=== PATIENT | male | born 1940 | race Caucasian/White ===

== ENCOUNTER 2017-04-29 14:51 | Inpatient (IN) | payer OTHER, MEDICARE ==
[2017-04-29] MEDS ORDERED: ACETAMINOPHEN 325 MG TAB PO PRN (15:54)
--- NOTE | 2017-04-29 17:02 | ECHO ---
[email or web address] [address] [address] Main: [phone] Fax: Transthoracic Echocardiogram Name: FELICE SCHULTZ MR#: [id number] Study Date: 04/29/2017 Study Time: 04:11 PM Date of : 1940 Age: 76 year(s) Height: 185.4 cm (73 in.) Weight: 131 kg (288.8 lb.) BSA: 2.52 m2 Gender: Male Examination: Echo Indication: SOB/question CHF Image Quality: Contrast: Requested by: Sonido Beltre BP: 144 mmHg/77 mmHg Heart Rate: Rhythm: Indication: SOB/question CHF Procedure Staff Laborer Yard: Desire Pelayo Physician: Ayden Harper Requesting Provider: Conclusions: Normal global systolic LV function. The ejection fraction is estimated to be 60-65 %. There is a pacemaker lead noted in the right ventricle. Mild mitral valve regurgitation is present. There is mild thickening of the aortic cusps. Mildly dilated ascending aorta measuring 4.2 cm. Measurements: Chambers Valvular Assessment AV/MV Valvular Assessment TV/PV Normal Normal Normal Name Value Range Name Value Range Name Value Range Ao April (MM): 2.5 cm (2.2 cm-3.7 AV meanP mmHg ( - ) TR Vmax: 2.90 mm/s ( - ) cm) MV E Vmax: 0.80 m/s ( - ) TR PGmax: 34 mmHg ( - ) LVDd (2D): 5.4 cm (4.2 cm-5.9 MV A Vmax: 0.25 m/s ( - ) syst. PAP: 39 mmHg ( - ) cm) MV E/A: 3.20 ( - ) EF Range: 60-65 % Continued Measurements: Chambers Valvular Assessment AV/MV Valvular Assessment TV/PV Name Value Name Value Name Value LADs: 5.8 cm MV E/E' Septal: 7.70 CVP (est.): 5 mmHg LADs Lon.1 cm MV E/E' Lateral: 7.90 LA Area: 31.1 cm2 Additional Vessels Name Value Ao Ascendin.2 cm Patient: FELICE SCHULTZ Study Date: 04/29/2017 Page 1 of 2 04:11 PM Findings: Left Ventricle: Normal size left ventricle. No LV hypertrophy. Normal global systolic LV function. The ejection fraction is estimated to be 60-65 %. No regional wall motion abnormality. Right Ventricle: Moderately dilated right ventricle. There is a pacemaker lead noted in the right ventricle. Left Atrium: The left atrium is mildly to moderately dilated. Right Atrium: The right atrium is moderately to severely dilated. Mitral Valve: The mitral valve is normal in appearance and function. Mild mitral valve regurgitation is present. Aortic Valve: The aortic valve is normal in appearance and function. There is mild thickening of the aortic cusps. Tricuspid Valve: The tricuspid valve is normal in appearance and function. Mild to moderate tricuspid valve regurgitation. RVSP is 39-44mmHG.. Pulmonic Valve: Pulmonary valve not well visualized. Aorta: The aorta is normal. Mild aortic root dilatation. Mildly dilated ascending aorta measuring 4.2 cm. Pericardium: No pericardial effusion. (No Signature Object) Patient: FELICE SCHULTZ Study Date: 04/29/2017 Page 2 of 2 04:11 PM [id number]
[2017-04-29 17:11] LABS: PLATELET COUNT 96 10^3/uL (150-400)
[2017-04-29 17:18] LABS: INR 2.46 (0.83-1.16); PROTIME(PATIENT) 26.6 SEC (12.0-15.0)
[2017-04-29] MEDS ORDERED: FUROSEMIDE 40 MG/4 ML VIAL IVP ONE (17:31)
--- NOTE | 2017-04-29 17:54 | CPEKG ---
Heart Rate: 80 RR Interval: 750 P-R Interval: 198 QRSD Interval: 148 QT Interval: 348 QTC Interval: 402 P Oak[place]: 0 QRS [place]: -42 T Wave [place]: 81 EKG Severity - ABNORMAL ECG - EKG Impression: VENTRICULAR-PACED RHYTHM Electronically Signed By: Giovanni Dc 30-Apr-2017 09:56:54
--- NOTE | 2017-04-29 18:09 | PDCARPN ---
Cardiology Progress Note Chief Complaint: Patient reports feeling abdomen is firm and dyspnea any exertion. Assessment/Plan: Assessment: Please see Dr Dc office note as 76 yo male who primary cardiology is [facility]. Patient with significant past history that includes CAD with previous CABG and multivessel stenting (no evidence of ischemia on MPI study 01/2015) , permanent atrial fibrillation/flutter, ischemic cardiomyopathy with most recent echocardiogram in August of 2016 EF of 50%, hyperlipidemia, remote history of ventricular tachycardia, Bi V AICD implantation, spinal stenosis, EtOH abuse ( reports 3-4 scotches night). [address] Dc on 04/29/2017, for generator change. Reporting increased weight gain (25 lb since January of 2017) , edema, orthopnea, abdomen bloating, and increased dyspnea on exertion. Denies of any chest pain or pressure. Does admit that he attempted to adjust his home dosing of Lasix to 80 mg q.day , without significant improvement. Sent from office for direct admission for evaluation possible CHF. At this time, echocardiogram done on admission showing normal global LV systolic function, EF was estimated between 60-65% RV moderately dilated, mild MR, mildly dilated ascending aorta 4.2 cm. RVSP estimated at 39-44 mm Hg. RA is moderately to severely dilated, LA is [id number] dilated. Laboratory studies showed mild anemia (hemoglobin 13.3, hematocrit 37.6) , INR is therapeutic at 2.46, chloride was noted to be low at 93, CO2 high at 33, AST 71, ALT 81, the rest of electrolytes and renal function within normal limits. Troponin mildly elevated at 0.049, BNP at 729. Patient lungs are diminished in bases, but no rales noted. JVD noted 5-6 cm above sternal notch at a 45 degree angle. +2 peripheral edema bilateral lower extremities to the thighs. Abdomen firm, with positive bowel sounds. Plan: 1. Heart failure, R>L: LVEF within normal limits, right-sided no significant valvular heart disease, RV moderately dilated noted on echocardiogram. Patient noted with JVD, firm abdomen , orthopnea, peripheral edema , and weight gain of 25 lb. BNP mildly elevated at 729. At this time, will start patient on IV Lasix , giving him a dose of 40 mg tonight, and then starting him on twice daily. We will monitor his electrolytes closely. Daily weights. Strict I&Os. Chest x- ray 2. CAD: Patient denies of any chest pain. Normal LV wall motion on echocardiogram. Troponin level 0.049. Continue on home home dose anti- platelet therapy of aspirin. Continue home dose beta-diana. Potential troponin elevation is due to CHF. Will cycle troponins. Noted patient is currently not on any statin therapy. Will evaluate with fasting lipid panel in a.m.. Will hold off on statin therapy due to elevated AST and ALT at the time being. 3. Permanent atrial fibrillation/flutter: On continuous cardiac technologist, patient's underlying rhythm is atrial fibrillation , with 100% V paced. Continue on home dose of Bystolic, patient is only taking his Tikosyn once a day , have discussed with Dr. Dc, current time will leave this as is at current time. Plan on adjusting at a later date. INR is therapeutic. Will hold warfarin for today, pending on how troponin levels are, potentially patient may need cardiac catheterization. 4. Third-degree heart block: Patient patient with Bi V AICD, patient is 100% V paced. No malignant arrhythmias have been noted. Device has met TATUM , is scheduled to undergo procedure with Dr. Dc on Thursday. 5. Elevate transaminases: Mildly elevated initial laboratory studies, questioning potential causes heart failure. Will re-evaluate in a day or 2 after diuresis. Will hold statin therapy at this time. 6. History VT: None noted on monitor at this time. Potassium magnesium within normal limits. 7. Ischemic cardiomyopathy: EF within normal limits. Continue on Bystolic and losartan. IV diuresis as above. Bi V pacing 8. EtOH abuse: Have ordered patient to have alcohol beverage at night. 9. DVT prophylaxis: Harshad sebastiáne ordered, INR therapeutic. 10. Code status: Patient is a full code. 04/29/17 18:06 Subjective: Patient denies of any chest pressure or pain, reports no palpitations, does report orthopnea, denies of PND, worsening peripheral edema, worsening abdomen bloating. Denies of any lightheadedness, near-syncope, or syncopal events. Reviewed/Discussed With: other (Dr Dc, Dr Aguirre) Objective: Vital Signs (8 Hrs) Temp Pulse Resp BP Pulse Ox 04/29/17 16:19 36.4 C 85 17 144/77 H 94 Intake/Output (24 Hrs) 01/04/29/17 04/30/17 05:59 05:59 05:59 Other: Weight 130.4 kg Result Diagrams: 04/29/17 16:50 04/29/17 16:50 Cardiac Labs: Cardiac Lab Results (72 Hrs) 04/29/17 16:50 Troponin I 0.049 H - Physical Exam Constitutional: obese (Moderate) Ears, Nose, Mouth, Throat: moist mucous membranes Cardiovascular: regular rate and rhythm, no rubs, no gallops, jugular vein distention (4-5 cm above sternal notch at a 45 degree angle.), pulses symmetric bilat, No no murmurs, No carotid bruit Peripheral Pulses: 1+: dorsalis-pedis (R), dorsalis-pedis (L), 2+: carotid (R), carotid (L) Respiratory: other (Lungs are clear but diminished in bases bilateral, no rhonchi, rales, or wheezing noted.) Gastrointestinal: normoactive bowel sounds, other (Abdomen is firm to palpitation.) Skin: warm, No no edema (+2 peripheral edema bilateral lower extremities to thighs.) Musculoskeletal: no muscular tenderness Neurologic: AAOx3, paresis Psychiatric: cooperative, interactive, following commands ICD10 Worksheet Patient Problems: Problems Problem Status Onset Pulmonary embolism Active Cardiomyopathy Active Cerebrovascular accident Active Ventricular tachycardia Active Status post coronary artery stent placement Acute Atrial fibrillation Acute Sick sinus syndrome Acute
[2017-04-29] MEDS ORDERED: ALBUTEROL 200 PUFFS/18 GM MDI IH PRN (18:10)
[2017-04-29] MEDS ORDERED: DOCUSATE SODIUM 100 MG CAP PO PRN (18:10)
[2017-04-29] MEDS ORDERED: MAGNESIUM SULF 1 GM/DEXTROSE 100 ML IV ONE (18:11)
[2017-04-29] MEDS: VODKA 50 ML BOTTLE PO SCH (20:30)
[2017-04-29] MEDS: ASPIRIN 81 MG CHEWABLE TAB PO SCH (20:31)
[2017-04-29] MEDS: CYANO/VITAMIN B12 1000 MCG TAB PO SCH (20:31)
[2017-04-29] MEDS: CHOLECALCIFEROL VIT D3 1,000 UNITS TAB PO SCH (20:31)
[2017-04-30 05:02] LABS: INR 2.22 (0.83-1.16); PROTIME(PATIENT) 24.6 SEC (12.0-15.0)
[2017-04-30] MEDS ORDERED: MAGNESIUM SULF 1 GM/DEXTROSE 100 ML IV ONE (07:31)
--- NOTE | 2017-04-30 08:49 | CPEKG ---
Heart Rate: 81 RR Interval: 741 P-R Interval: 171 QRSD Interval: 152 QT Interval: 368 QTC Interval: 428 P [place]: 0 QRS [place]: 0 T Wave [place]: -65 EKG Severity - ABNORMAL ECG - EKG Impression: VENTRICULAR-PACED COMPLEXES Electronically Signed By: Giovanni Dc 30-Apr-2017 09:56:49
[2017-04-30] MEDS: POTASSIUM CL 20 MEQ/15 ML UDCUP PO SCH ×2 (08:57→11:02)
[2017-04-30] MEDS: FUROSEMIDE 40 MG/4 ML VIAL IVP SCH ×2 (08:58→16:37)
[2017-04-30] MEDS ORDERED: FUROSEMIDE 40 MG/4 ML VIAL IVP SCH (09:00)
[2017-04-30] MEDS ORDERED: WARFARIN SODIUM 2.5 MG TAB PO SCH (09:00)
--- NOTE | 2017-04-30 09:02 | PDCARPN ---
Cardiology Progress Note Chief Complaint: Patient reports fatigue symptoms. Occasional shortness of breath with exertion. Assessment/Plan: Assessment: 76 yo male who primary cardiology is [facility]. Patient with significant past history that includes CAD with previous CABG and multivessel stenting (no evidence of ischemia on MPI study 01/2015) , permanent atrial fibrillation/ flutter, ischemic cardiomyopathy with most recent echocardiogram in August of 2016 EF of 50%, hyperlipidemia, remote history of ventricular tachycardia, Bi V AICD implantation, spinal stenosis, EtOH abuse (reports 3-4 scotches night). [address] Dc on 04/29/2017, for generator change. Reporting increased weight gain (25 lb since January of 2017), edema, orthopnea, abdomen bloating, and increased dyspnea on exertion. Denies of any chest pain or pressure. Does admit that he attempted to adjust his home dosing of Lasix to 80 mg q.day , without significant improvement. Sent from office for direct admission for evaluation possible CHF(04/29/2017). Echo on 04/29/2017, normal global LV systolic function, EF was estimated between 60-65% RV moderately dilated, mild MR, mildly dilated ascending aorta 4.2 cm. RVSP estimated at 39- 44 mm Hg. RA is moderately to severely dilated, LA is ttnf-kb-[id number] dilated. Today, patient reports easier to breath after 1st dose of Lasix. His weight is down 1 kilos. He has had over a L of output out. Chest x-ray done last evening showing suspected congestive heart failure. He denies of any chest pressure or pain. Continues cardiac monitoring showing underlying rhythm atrial fibrillation, with ventricular paced beat. Troponin indeterminate range at 0.058 today. Abdomen is not as firm as a was yesterday. Continues to have + 2 to 3 peripheral edema bilateral lower extremities to thighs. Plan: 1. Heart failure, R>L: LVEF within normal limits, RV moderately dilated, no significant valvular heart disease, BNP greater than 700. Chest x-ray suggesting heart failure. Patient reports improvement after her initial dose of Lasix last evening. Down 1 kilos. Continue on IV Lasix today, increased to 60 mg IV twice daily. Continue monitoring weight, strict I&Os. 2. CAD: Patient denies of any chest pain. Normal LV wall motion on echocardiogram. Troponin level 0.058. Continue on home home dose anti- platelet therapy of aspirin. Continue home dose beta-diana. Elevation due to flow mismatch due to CHF. Will continue to monitor. Noted patient is currently not on any statin therapy. Will hold off on statin therapy due to elevated AST and ALT at the time being, potentially can be considered to start in an outpatient setting. 3. 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 Continue on home dose of Bystolic and Tikosyn. INR remains therapeutic. Will continue holding warfarin at this time, due to indeterminate troponin level. 4. Third-degree heart block: Patient with Bi V AICD, patient is 100% V paced. No malignant arrhythmias have been noted. Device has met TATUM , is scheduled to undergo procedure with Dr. Dc on Thursday. 5. Elevate transaminases: Mildly elevated initial laboratory studies, questioning potential causes heart failure. Improvement overnight, after diuresis. Continue to monitor. 6. History VT: None noted on monitor at this time. Potassium magnesium within normal limits. Continue supplements with IV diuresis. 7. Ischemic cardiomyopathy: EF within normal limits. Continue on Bystolic and losartan. IV diuresis as above. Bi V pacing 8. EtOH abuse: Have ordered patient to have alcohol beverage at night. 9. DVT prophylaxis: Harshad wahl ordered, INR therapeutic. 10. Code status: Patient is a full code. Due to the patient needing to continue with IV diuresis, will plan for him to be in hospital for greater than 2 midnight stays. 04/30/17 08:54 Subjective: Denies of any chest pressure or pain. Reports no palpitations. Denies of any lightheadedness, near-syncope, or syncopal events. Denies of any therapeutic shocks from AICD. Reviewed/Discussed With: multidisciplinary team, other (Dr Alvarenga) Objective: Vital Signs (8 Hrs) Temp Pulse Resp BP Pulse Ox 04/30/17 07:45 36.8 C 80 18 145/85 H 95 04/30/17 04:00 36.7 C 80 17 147/87 H 95 Intake/Output (24 Hrs) 04/29/17 04/30/17 05/01/17 05:59 05:59 05:59 Intake Total 825 Output Total 1850 Balance -1025 Intake: Oral (ml) 700 IV Intake (ml) 25 IV Infused (ml) 100 Magnesium Sulf 1 gm/ 100 Dextrose 100 ml @ 100 mls /hr IV ONCE ONE Rx#: [id number] Output: Urine (ml) 1850 Toilet 600 Urinal 1250 Other: Weight 129.4 kg Intake Quantity Yes Sufficient Number of Voids Urinal 1 Number of Stools Toilet 1 Result Diagrams: 04/30/17 03:50 04/30/17 03:50 Cardiac Labs: Cardiac Lab Results (72 Hrs) 04/30/17 04/29/17 04/29/17 03:50 21:56 16:50 Troponin I 0.058 H 0.049 H 0.049 H - Physical Exam Constitutional: no apparent distress, obese Ears, Nose, Mouth, Throat: moist mucous membranes Cardiovascular: regular rate and rhythm, no murmurs, no rubs, no gallops, jugular vein distention (4-5 cm above sternal notch at a 45 degree angle), pulses symmetric bilat, carotid bruit Peripheral Pulses: 1+: dorsalis-pedis (R), dorsalis-pedis (L), 2+: carotid (R), carotid (L) Respiratory: other (Lungs are clear but diminished in bases bilateral, no rhonchi, rales, or wheezing noted.) Gastrointestinal: normoactive bowel sounds, other (Abdomen remains firm, but improvement from yesterday.) Skin: no rashes, No no edema (+2 to 3 peripheral edema bilateral lower extremities to thighs.) Neurologic: AAOx3 Psychiatric: cooperative, interactive, following commands ICD10 Worksheet Patient Problems: Problems Problem Status Onset Pulmonary embolism Active Cardiomyopathy Active Cerebrovascular accident Active Ventricular tachycardia Active Status post coronary artery stent placement Acute Atrial fibrillation Acute Sick sinus syndrome Acute
[2017-04-30] MEDS: ASCORBIC ACID 500 MG TAB PO SCH (09:34)
[2017-04-30] MEDS: LOSARTAN POTASSIUM 25 MG TAB PO SCH (09:34)
[2017-04-30] MEDS: DOFETILIDE 0.5 MG CAP PO SCH (09:34)
[2017-04-30] MEDS: CHOLECALCIFEROL VIT D3 1,000 UNITS TAB PO SCH ×2 (09:34→20:03)
[2017-04-30] MEDS: NEBIVOLOL HCL 5 MG TAB PO SCH (09:34)
--- NOTE | 2017-04-30 10:26 | ASMTCASEMG ---
Living Arrangements What is your living Answers: With Spouse arrangement? Who do you live with? Type Of Residence What kind of residence do Answers: House you live in? Discharge Plan Comments Coordination Status Comments Notes: Pt is a 76 y/o man admitted for CHF. Pt will most likely not have any dc needs when medically stable. No therapies ordered at this time. CM available for changes. Plan: Independent Date Signed: 04/30/2017 10:25 AM Electronically Signed By:JAIME Oneal
[2017-04-30] MEDS: VODKA 50 ML BOTTLE PO SCH (20:03)
[2017-04-30] MEDS: ASPIRIN 81 MG CHEWABLE TAB PO SCH (20:03)
[2017-04-30] MEDS: CYANO/VITAMIN B12 1000 MCG TAB PO SCH (20:03)
[2017-05-01 04:43] LABS: INR 1.75 (0.83-1.16); PROTIME(PATIENT) 20.5 SEC (12.0-15.0)
[2017-05-01 07:11] VITALS: TEMP 98
[2017-05-01] MEDS ORDERED: POTASSIUM CL 20 MEQ TAB PO SCH (09:00)
[2017-05-01] MEDS: FUROSEMIDE 40 MG/4 ML VIAL IVP SCH (09:41)
[2017-05-01] MEDS: ASCORBIC ACID 500 MG TAB PO SCH (09:48)
[2017-05-01] MEDS: NEBIVOLOL HCL 5 MG TAB PO SCH (09:48)
[2017-05-01] MEDS: FUROSEMIDE 40 MG TAB PO SCH ×2 (09:48→14:04)
[2017-05-01] MEDS: CHOLECALCIFEROL VIT D3 1,000 UNITS TAB PO SCH (09:48)
[2017-05-01] MEDS: LOSARTAN POTASSIUM 25 MG TAB PO SCH (09:48)
[2017-05-01] MEDS: DOFETILIDE 0.5 MG CAP PO SCH (09:49)
[2017-05-01] MEDS ORDERED: LORazepam 1 MG TAB PO ONE (09:50)
[2017-05-01 11:35] VITALS: BP 144/79; PULSE 91; RESP 14; O2SAT 96
[2017-05-01] MEDS ORDERED: WARFARIN SODIUM 5 MG TAB PO ONE (13:00)
[2017-05-01] MEDS ORDERED: WARFARIN SODIUM 5 MG TAB PO SCH (13:00)
[2017-05-01] MEDS ORDERED: WARFARIN SODIUM 2.5 MG TAB PO ONE (13:00)
--- NOTE | 2017-05-01 17:51 | ASDISCHSUM ---
Discharge Information Plan Status:Home with No Needs Medically Cleared to Leave:04/30/2017 Discharge Date:05/01/2017 04:55 PM CM D/C Disposition: ADT D/C Disposition:Home, Routine, Self-Care Projected Discharge Date:05/01/2017 12:00 AM Transportation at D/C: Discharge Delay Reason: Follow-Up Date:05/01/2017 12:00 AM Discharge Slot: Final Diagnosis: Placement Information Patient Contact Information Contact Name:ROSA Relationship: Address:[address] City:[place] Alternate Phone: [facility]/Zip Code:[place] [address] Email: Financial Information Financial Class: Primary Plan Desc:MEDICARE INPATIENT Primary Plan Number:[id number] Secondary Plan Desc:[employer]/M[employer] SUPPLEMENT Secondary Plan Number:[id number] Assessment Information [facility] Initial CM Assessment Living Arrangements What is your living Answers: With Spouse arrangement? Who do you live with? Type Of Residence What kind of residence do Answers: House you live in? Discharge Plan Comments Coordination Status Comments Notes: Pt is a 76 y/o man admitted for CHF. Pt will most likely not have any dc needs when medically stable. No therapies ordered at this time. CM available for changes. Plan: Independent Date Signed: 04/30/2017 10:25 AM Electronically Signed By:JAIME Oneal Intervention Information Intervention Type:*Incorrect Registration Date of Service:04/30/2017 12:17 PM Patient Type:Inpatient Staff Member:NORM Vo Susan Hours: Discipline: Severity: Comment:
--- NOTE | 2017-05-01 18:52 | GDS ---
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 Ayden Harper. ADMISSION DIAGNOSES: 1. Increased shortness of breath and swelling. 2. Coronary artery disease. 3. Permanent atrial fibrillation/flutter. 4. History of ischemic cardiomyopathy. 5. Hyperlipidemia. 6. Remote history of ventricular tachycardia. 7. Remote history of biventricular automatic internal cardioverter- defibrillator implantation. 8. Spinal stenosis. 9. ETOH abuse. 10. Automatic internal cardioverter-defibrillator generator elective replacement indicator. 11. Hypoxia, on home oxygen therapy around the clock. DISCHARGE DIAGNOSES: 1. Heart failure, biventricular, right greater than left. 2. Coronary artery disease. 3. Elevated liver enzymes. 4. Permanent atrial fibrillation/flutter. 5. Ischemic cardiomyopathy. 6. Hyperlipidemia. 7. Remote history of ventricular tachycardia. 8. Remote biventricular automatic internal cardioverter-defibrillator implantation. 9. Spinal stenosis. 10. ETOH abuse. 11. Biventricular automatic internal cardioverter-defibrillator generator, elective replacement indicator. 12. Dilated ascending aortic root at 4.2 cm. 13. Hypoxia, on home oxygen therapy around the clock. 14. Cholelithiasis. PROCEDURES DONE DURING HOSPITALIZATION: Include: 1. Chest x-ray. 2. Electrocardiogram. 3. Echocardiogram. 4. Abdominal ultrasound. BRIEF HISTORY: Please see H and P. The patient is a 76-year-old male whose primary cardiology is [facility]. On the , he was seeing Dr. Dc for evaluation due to his bi-V AICD generator had reached TATUM. He reported at that time of increased shortness of breath with exertion, 25-pound weight gain, increased lower extremity edema. At that time, it was felt that he should be admitted to the hospital for further evaluation, and potentially IV diuresis. HOSPITAL COURSE: Patient was direct admitted to the PCU. There, he had initial laboratory studies drawn, showing a BNP of 729. Initial chest x-ray did show ground-glass opacities of both lungs, suggesting pulmonary edema pattern. Initial echocardiogram was done, showing normal global LV systolic function with EF of 60% to 65%, mild MR, mildly dilated ascending aortic root of 4.2 cm. At that time, he was started on IV Lasix and over the last few days , he has noticed significant improvement in his lower extremity swelling, his dyspnea on exertion has also dissipated, he is still getting shortness of breath after walking 100 feet. He has lost a total of 4 kg since hospital admission with discharge weight of 126.9 kg. He has had no significant arrhythmias, chronica-fib with v pacing. It was noted on admission that he had a mildly elevated troponin of 0.049, which trended downward, suspect it was due to CHF and cardiac stretching. Noted also initial laboratory study showing elevated liver enzymes. Thought potentially this could to be due to right- sided heart failure, but potentially also due to his history of alcohol abuse. He did undergo an abdominal ultrasound which showed enlarged fatty liver, and cholelithiasis. At this time, the patient reports he is anxious to go home. It was recommended that potentially he stay another night for further diuresis, but he reports his anxiety will not allow him to. PHYSICAL EXAMINATION ON DAY OF DISCHARGE: GENERAL APPEARANCE: Moderately obese male. He is alert and oriented to person, place, time, situation. Appears to be under no acute distress. CURRENT VITAL SIGNS: Blood pressure 144/79, heart rate 91, atrial fibrillation on the monitor. Respirations 14, saturating 96% on 2 L nasal cannula. Temperature 36.7 degrees Celsius. HEENT: Head is normocephalic. Lips and tongue are pink and moist with no signs of cyanosis. Conjunctivae are pink. NECK: Trachea is midline, + 2 carotid pulses bilateral, 4 cm of jugular vein elevation at 45-degree angle above sternal notch. LUNGS: Clear bilaterally with no rhonchi, rales or wheezes. CARDIAC: Regular rate, regular rhythm, S1, S2; no S3, S4, gallops, rubs or murmur noted. ABDOMEN: Soft, nontender, bowel sounds x4 quadrants. SKIN: [place], warm, dry, no cyanosis, +1 to 2 peripheral edema, bilateral lower extremities to knees. VASCULAR: +2 carotids bilateral, +2 radials bilateral, + 1 dorsal pedal and posterior tibial pulses bilateral. LABORATORY STUDIES: Laboratory studies drawn on the showed WBC of 6.87, hemoglobin of 12.8, hematocrit of 38.1, platelet count 99. INR this morning was 1.75. Sodium 137, potassium 4.1, chloride 94, CO2 29, BUN 23, creatinine 1.0, glucose 133, calcium 9.1, magnesium 2.0, total bilirubin was 1.6, AST was 68, ALT was 74. Troponin on a downward decline of 0.041. Alkaline phosphate 44 , total protein 6.6, and albumin 3.7. Fasting lipid panel drawn yesterday showed triglycerides of 87, total cholesterol 157, LDL 90, HDL 50. STUDIES: Chest x-ray as mentioned above. Electrocardiogram done on the showing underlying rhythm of atrial fibrillation with ventricular paced beat. Abdominal ultrasound as mentioned above. Echocardiogram as mentioned above. DISCHARGE DISPOSITION: Patient will be discharged home in fair condition. He is under no activity restrictions. DISCHARGE MEDICATIONS: Please see discharge medication reconciliation sheet. Note that patient's home dosage of Lasix has been increased to 60 mg p.o. twice daily. He has been noted to be mildly hypertensive during this hospitalization , and home losartan dosage has been increased to 50 mg p.o. daily, and his home dosage of potassium chloride has been increased to 20 mEq p.o. twice daily. DISCHARGE INSTRUCTIONS: Congestive heart failure post discharge instructions went over with the patient and his , including monitoring sodium intake, fluid restriction, daily weights, and medication compliance. The patient is to have his bi-V generator change done on Thursday of this upcoming week. At that time, we will plan to repeat INR and CMP. Per Dr. Dc, he is planning to do this procedure with patient on warfarin, no changes at this time. The patient has been told to be n.p.o. after midnight. The patient also has been noncompliant with his home oxygen use, and he has been encouraged to continue using this. The patient will also follow up with his PCP regarding his cholelithiasis. At the time of discharge, patient and verbalized understanding all discharge instructions and have no questions. They have been told that if any problems or concerns come up post discharge, they are to notify our office or return to the hospital. Total time spent on discharge, greater than 35 minutes. /[id number]/MODL MTDD
[2017-05-04] MEDS ORDERED: WARFARIN SODIUM 5 MG TAB PO SCH ×2 (09:00→16:00)
== END 2017-05-01 16:55 | disposition home or self-care (01) | DRG 292 ==
LOC: F2W 15:45 → INTOOBSV 15:45 → OBSVTOIN 04-30 09:26
PROVIDERS: ADMIT Internal Medicine Cardiovascular Disease; ATTEND Internal Medicine Cardiovascular Disease
DX: I50.82 Biventricular heart failure (principal); I48.92 Unspecified atrial flutter; I48.2 Chronic atrial fibrillation; I25.10 Atherosclerotic heart disease of native coronary artery without angina pectoris; E78.5 Hyperlipidemia, unspecified; I44.2 Atrioventricular block, complete; M48.00 Spinal stenosis, site unspecified; Z95.5 Presence of coronary angioplasty implant and graft; Z95.1 Presence of aortocoronary bypass graft; Z95.810 Presence of automatic (implantable) cardiac defibrillator; Z87.891 Personal history of nicotine dependence; Z99.81 Dependence on supplemental oxygen
CPT/HCPCS: G0378; G0379; J1940; J3475

== ENCOUNTER 2017-05-04 08:35 | Day surgery (SDC) | payer OTHER, MEDICARE ==
[2017-05-04] MEDS ORDERED: diphenhydrAMINE 25 MG CAP PO ONE (08:43)
[2017-05-04] MEDS ORDERED: NS 1,000 ML IV ONE (08:43)
[2017-05-04] MEDS ORDERED: BACITRACIN IRRIGATION/NS 50,000 UNITS/1,000 ML BTL IRR ONE (08:43)
[2017-05-04] MEDS ORDERED: DIAZEPAM 5 MG TAB PO ONE (08:43)
--- NOTE | 2017-05-04 09:10 | CPEKG ---
Heart Rate: 80 RR Interval: 750 P-R Interval: 216 QRSD Interval: 152 QT Interval: 452 QTC Interval: 522 P [place]: 0 QRS [place]: 0 T Wave [place]: 88 EKG Severity - ABNORMAL ECG - EKG Impression: VENTRICULAR-PACED RHYTHM Electronically Signed By: Giovanni Dc 04-May-2017 15:29:45
[2017-05-04] MEDS ORDERED: VANCOMYCIN HCL/NORMAL SALINE 250 ML IV ONE (09:30)
[2017-05-04 09:33] LABS: PLATELET COUNT 111 10^3/uL (150-400)
[2017-05-04 09:47] LABS: INR 1.54 (0.83-1.16); PROTIME(PATIENT) 18.6 SEC (12.0-15.0)
[2017-05-04] MEDS ORDERED: MIDAZOLAM 2 MG/2 ML VIAL IVP ONE (11:22)
--- NOTE | 2017-05-04 11:22 | PDANEPAE ---
ANE History of Present Illness 76 yo for aicd gen change ANE Past Medical History - Cardiovascular History Hx Hypertension: Yes Hx Arrhythmias: Yes Hx CHF / Valvular Disease: Yes - Pulmonary History Hx COPD: Yes Hx Oxygen in Use at Home: Yes Hx Sleep Apnea: Yes - Endocrine History Hx Diabetes: No - Chronic Pain History Chronic Pain: No ANE Review of Systems Review of Systems: ANE Patient History - Allergies Allergies/Adverse Reactions: Penicillins Allergy (Mild, Verified 03/30/15 17:03) Itching - Home Medications Home medications: home medication list seen and reviewed Home Medications: Ascorbic Acid [Vitamin C 500 mg (*)] 1,000 mg PO DAILY 05/26/12 [Last Taken ] Aspirin [Aspirin 81mg (*)] 81 mg PO HS 05/26/12 [Last Taken 05/03/17] Cyanocobalamin [Vitamin B12 (*)] 1,000 mcg PO HS 05/26/12 [Last Taken 05/03/17] Docusate Sodium [Colace 100 MG (*)] 100 mg PO BID PRN 05/26/12 [Last Taken 05/03] Albuterol [Proventil Inhaler HFA (*)] 2 puffs IH Q4 PRN 03/02/13 [Last Taken ] Cholecalciferol Vit D3 [Vitamin D3 (*)] 1,000 units PO BID 03/02/13 [Last Taken 05/03/17] Loratadine [Allergy] 10 mg PO DAILY PRN 03/02/13 [Last Taken 1 Month Ago ~] Warfarin Sodium [Coumadin 5MG (*)] 2.5 mg PO SUTUWEFRSA@16 03/02/13 [Last Taken 05/03/17] Warfarin Sodium [Coumadin 5MG (*)] 5 mg PO MO@16 03/02/13 [Last Taken 05/04/17] Dofetilide [Tikosyn] 500 mcg PO DAILY 01/25/15 [Last Taken 05/03/17] Nebivolol HCl [Bystolic 5 mg (*)] 5 mg PO DAILY 01/25/15 [Last Taken 05/03/17] Magnesium Oxide [Magnesium Oxide 400 mg (*)] 400 mg PO DAILY 04/29/17 [Last Taken 05/03/17] Bifidobacterium Infantis [Align] 4 mg PO DAILY 05/04/17 [Last Taken 05/03/17] Furosemide [Lasix 40 MG (*)] 40 mg PO DAILY 05/04/17 [Last Taken 05/03/17] Lansoprazole [Lansoprazole 30 mg tab] 30 mg PO DAILY 05/04/17 [Last Taken ] Naproxen Sodium [Aleve 220 MG (*)] 220 mg PO BID PRN 05/04/17 [Last Taken Unknown] [place]-3 Fatty Acids [Fish Oil 1000 mg (*)] 1,000 mg PO DAILY 05/04/17 [Last Taken 05/03/17] Potassium Cl [Klor-Con 20 meq (*)] 40 meq PO BID 05/04/17 [Last Taken 05/03/17] - NPO status NPO Status: no food or drink >8 hours - Smoking Hx Smoking Status: Former smoker ANE Labs/Vital Signs - Labs Result Diagrams: 05/04/17 09:25 05/04/17 09:25 - Vital Signs Height: 6 ft 1 in Weight: 123.377 kg ANE Physical Exam - Airway Neck exam: FROM Mallampati Score: Class 2 Mouth exam: normal dental/mouth exam - Pulmonary Pulmonary: no respiratory distress - Cardiovascular Cardiovascular: regular rate and rhythym - ASA Status ASA Status: IV ANE Anesthesia Plan Anesthesia Plan: MAC
[2017-05-04] MEDS ORDERED: PROPOFOL/EMULSION 500 MG/50 ML BOTTLE IV ONE (11:31)
--- NOTE | 2017-05-04 11:31 | PDHPUP ---
History & Physical Update H&P update statement: This history and physical update is based on an assessment of the patient which was completed after admission or registration (within 24 hours), but prior to the surgery/procedure. H&P update: H&P reviewed & patient examined, no change in patient's condition since H&P completed
[2017-05-04] MEDS ORDERED: BUPIVACAINE 0.5% 30 ML SDV ONE (11:34)
[2017-05-04] MEDS ORDERED: fentaNYL 100 MCG/2 ML INJ ONE (11:34)
[2017-05-04] MEDS ORDERED: LIDOCAINE 1% 300 MG/30 ML SDV ONE (11:34)
--- NOTE | 2017-05-04 13:34 | POSTANESTH ---
Post Anesthetic Evaluation Cardiovascular Status: Normal, Stable Respiratory Status: Similar to Pre-op Cond. Level of Consciousness/Mental Status: Can Participate in Eval Pain Control: Adequate, Prn Tx Ordered Nausea/Vomiting Control: Adequate, Prn Tx Ordered Complications Possibly Related to Anesthesia: None Noted
--- NOTE | 2017-05-04 13:43 | EPPROC ---
Electrophysiology Procedure Note: PROCEDURE PERFORMED: 1. Explantation of an A-BiV Implantable Cardioverter Defibrillator 2. 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 Dr. Mckenna administered sedation. The left infraclavicular area was prepped and draped in the usual sterile fashion. Lidocaine plus bupivacaine was used for local anesthesia. Using a combination of blunt and sharp dissection and electrocautery, the dissection was carried down to the prepectoral fascia and the existing ICD pocket was opened. The ICD generator was disconnected from the leads and the lead thresholds and impedance were checked. The ICD pocket was copiously irrigated with antibiotic solution. The pocket was again inspected for any bleeding. The leads were attached to the ICD securely. The ICD was inserted into the pocket and secured in place with a nonabsorbable suture. Previously capped lead was sutured to posterior aspect of pacemaker pocket. The ICD pocket was closed in 3 layers with absorbable monocryl sutures and uri. Appropriate dressing was applied. The patient left the cardiac catheterization laboratory in stable condition. Serial Numbers: 1. Implanted Device: [employer]ortex[employer] Dynagen CRTD DF1 LV1 [id number] 2. Atrial Lead: SJM Tendril 1882 [id number] 3. Ventricular Lead: [employer] [place] [id number] 4. Coronary sinus Lead: [employer] EasyTrak LV1 Passive 90 cm [id number] 5. Removed Device: Stimulation Thresholds & Impedance Measurements: 1. Atrial Lead atrial flutter, P 1 mV 359 ohm 2. Ventricular Lead 1.6 V 1 ms 579 ohm shock 42 ohm 3. Coronary sinus Lead 4 V 1 ms (LV Tip1 to RV) 519 ohm Defibrillation testing: Not done Pacing Parameters: 1. Pacing mode: VVIR 2. Lower rate: 80 ppm 3. Upper tracking rate: 125 ppm 4. Upper sensor rate: 125 ppm Output RV 4.5 V 1 ms (patient has not had syncope since 2012 since RV outputs were increased), LV5.5 V @ 1 ms Tachycardia therapy parameters: VF zone : Detection 240 bpm First therapy ATP Subsequent therapies 41 Joule VT zone : Detection 185 bpm First therapy ATP Subsequent therapies 41 Joule VT1 zone, monitor only 150 bpm Patient Problems: Problems Problem Status Onset chronic disease mgmt/transitional care Acute Pulmonary embolism Active Cardiomyopathy Active Cerebrovascular accident Active Ventricular tachycardia Active Status post coronary artery stent placement Acute Atrial fibrillation Acute Sick sinus syndrome Acute
== END 2017-05-04 14:23 | disposition home or self-care (01) ==
LOC: FLAB 08:35 → FCATH 14:23
PROVIDERS: ATTEND Internal Medicine Cardiovascular Disease
PROC: 0JPT0PZ Removal of Cardiac Rhythm Related Device from Trunk Subcutaneous Tissue and Fascia, Open Approach (ICD-10-PCS; principal; 2017-05-04)
PROC: 0JH609Z Insertion of Cardiac Resynchronization Defibrillator Pulse Generator into Chest Subcutaneous Tissue and Fascia, Open Approach (ICD-10-PCS; principal; 2017-05-04)
DX: Z45.018 Encounter for adjustment and management of other part of cardiac pacemaker (principal); I48.92 Unspecified atrial flutter; I25.5 Ischemic cardiomyopathy; I47.2 Ventricular tachycardia; I11.0 Hypertensive heart disease with heart failure; I50.41 Acute combined systolic (congestive) and diastolic (congestive) heart failure; J44.9 Chronic obstructive pulmonary disease, unspecified; Z87.891 Personal history of nicotine dependence; Z88.0 Allergy status to penicillin
CPT/HCPCS: C1882; J2250; J2704; J3010; J3370

== ENCOUNTER → 2018-04-27 | Outpatient (CLI) | payer OTHER, MEDICARE | LOC: BHLMT 10:45 | PROVIDERS: ATTEND Internal Medicine Cardiovascular Disease | DX: I50.9 Heart failure, unspecified (principal); I48.91 Unspecified atrial fibrillation | CPT/HCPCS: 93306-PO ==